=== PATIENT | male | born 1990 | race Caucasian/White ===

== ENCOUNTER 2017-05-17 19:20 | Inpatient (IN) | payer BC, OTHER ==
[~2017-05-17] VITALS: Ht 172.7 cm; Wt 70.3 kg
--- NOTE | 2017-05-17 20:00 | NUR ---
INTAKE ASSESSMENT Pt assessed in intake,Pt found to be A/A/O X 4,V/S STABLE:-B/P=131/82,T=97.5,P=97,R=16,O2 SAT= 97%.Pt is dirty,dishevelled and malodorous,dressed in dirty clothes,speech is clear,Pt is able to ambulate with a steady gait,no c/o pain or s/s of acute distress noted,in stable condition to proceed to detox unit.
[2017-05-17] MEDS ORDERED: THIAMINE HCL 200 MG/2 ML VIAL IM ONE (20:30)
[2017-05-17] MEDS ORDERED: ACETAMINOPHEN 325 MG TABLET PO PRN (20:30)
[2017-05-17] MEDS ORDERED: ONDANSETRON ODT 4 MG TAB.RAPDIS SL PRN (20:30)
[2017-05-17] MEDS ORDERED: DICYCLOMINE HCL 20 MG TABLET PO PRN (20:30)
[2017-05-17] MEDS ORDERED: MAG HYDROX/AL HYDROX/SIMETH 30 ML LIQUID UDC PO PRN (20:30)
[2017-05-17] MEDS ORDERED: MAGNESIUM HYDROXIDE 30 ML LIQUID UDC PO PRN (20:30)
[2017-05-17] MEDS ORDERED: ONDANSETRON 4 MG/2 ML VIAL IM PRN (20:30)
[2017-05-17] MEDS ORDERED: LOPERAMIDE HCL 2 MG CAPSULE PO PRN ×2 (20:30)
[2017-05-17] MEDS ORDERED: LORAZEPAM 1 MG TABLET PO PRN (20:30)
[2017-05-17] MEDS ORDERED: LORAZEPAM 2 MG/1 ML VIAL IM PRN (20:30)
[2017-05-17] MEDS ORDERED: MIRALAX 17 GM POWD.PACK PO PRN (20:30)
[2017-05-17] MEDS ORDERED: IBUPROFEN 400 MG TABLET PO PRN (20:30)
--- NOTE | 2017-05-17 21:00 | NUR ---
ADMISSION NOTE-- HT-5' 8" WT-155 LBS. B/P=131/82,T=07.5,P=97,R=16,O2 SAT=97% Admitting 27 year old male to [facility] for Alcohol Dependency.Pt started drinking Alcohol on and off since the age of 10 years,but became more regular at the age of 15 years.He has been drinking Malt Beverages on a daily basis for the past "few" weeks.He drinks 25 ounces cans "as many as I can afford to",approximately averaging up to 10 cans daily.His last drink was a few hours before admission.Pt is A/O X 4.Breathing is even and non labored,no c/o SOB noted.Abdomen is non tender with hypoactive bowel sounds x 4.No c/o N/V/D noted.Skin is warm,dry and intact.Pt noted to have red/flushed face and neck area due to being exposed to sun;also noted to have a small scab on his right wrist.No c/o pain or s/s of acute distress noted.CIWA score is 5.Pt denies any allergies to food or medications;denies any medical problems;no history of seizures noted.Pt does not take any medications.Pt admits feeling anxious and depressed,also has history of having suicidal thoughts but denies feeling suicidal at this time.Pt does not have a PCP.Pt oriented to room and unit,all safety measures in place per hospital policy;bed is locked in the lowest position,side rails up x 2,call light within reach;care plan and safety checks initiated, notified,will continue to monitor for safe detox. TREATMENT HX:- [facility] 1 YEAR AGO. [facility] 8 MONTHS AGO. Pt longest sober period was for 9 months,Pt is unable to provide exact time.
[2017-05-17 21:15] LABS: BASOPHILS % (AUTO) 0.3 % (0.0-2.0); EOSINOPHILS % (AUTO) 0.4 % (0.0-7.0); HEMATOCRIT 43.7 % (40-50); HEMOGLOBIN 14.9 G/DL (14.0-18.0); LYMPHOCYTES # (AUTO) 2.2 K/UL (0.8-4.8); LYMPHOCYTES % (AUTO) 21.3 % (20.5-51.5); MEAN CORPUSCULAR HGB CONC 34 g/dL (32.0-37.0); MEAN CORPUSCULAR VOLUME 85.5 FL (82.0-92.0); MONOCYTES # (AUTO) 1.2 K/UL (0.1-1.30); MONOCYTES % (AUTO) 11.2 % (0.0-11.0); NEUTROPHILS # (AUTO) 7.1 K/UL (1.8-8.9); NEUTROPHILS % (AUTO) 66.8 % (38.5-71.5); PLATELET COUNT (AUTO) 183 K/UL (150-450); RED BLOOD CELL COUNT(AUTO) 5.12 MIL/UL (4.7-6.1); WHITE BLOOD COUNT (AUTO) 10.5 K/UL (4.0-11.2)
[2017-05-17 21:33] LABS: BILIRUBIN,TOTAL 1.3 mg/dL (0.2-1.0); CREATININE 0.9 mg/dL (0.6-1.3); MAGNESIUM 1.6 mg/dL (1.8-2.4); POTASSIUM 3.3 mmol/L (3.5-5.1); TOTAL PROTEIN, SERUM 7.1 g/dL (6.4-8.2)
[2017-05-17 21:41] LABS: THYROID STIMULATING HORMONE 2.413 mIU/mL (0.358-3.740)
[2017-05-17] MEDS ORDERED: MAGNESIUM OXIDE 400 MG TABLET PO ONE (21:45)
[2017-05-17 21:57] LABS: *AMPHETAMINE, URINE NEGATIVE (NEGATIVE); *BARBITURATE, URINE NEGATIVE (NEGATIVE); *CANNABINOID, URINE NEGATIVE (NEGATIVE); *COCCAINE, URINE NEGATIVE (NEGATIVE); *OPIATE, URINE NEGATIVE (NEGATIVE); *PHENCYCLIDINE SCREEN,URINE NEGATIVE (NEGATIVE)
[2017-05-17] MEDS ORDERED: POTASSIUM CHLORIDE 20 MEQ TAB.PRT.SR PO ONE (22:00)
[2017-05-17] MEDS: LORAZEPAM 1 MG TABLET PO PRN (22:28)
[2017-05-17] MEDS: diphenhydrAMINE 50 MG CAPSULE PO PRN (22:28)
[2017-05-17] MEDS ORDERED: POTASSIUM CHLORIDE 20 MEQ TAB.PRT.SR ONE (22:30)
--- NOTE | 2017-05-17 22:30 | NUR ---
PRN MEDS PRN ATIVAN 1 MG PO GIVEN FOR CIWA SCORE OF 5 AND BENADRYL 50 MG PO GIVEN FOR C/O INSOMNIA.WILL MONITOR.
[2017-05-17] MEDS ORDERED: MAGNESIUM OXIDE 400 MG TABLET ONE (22:31)
--- NOTE | 2017-05-17 23:30 | NUR ---
PRN MEDS ARE MINIMALLY EFFECTIVE.PT STILL FEELING ANXIOUS AND UNABLE TO SLEEP.
[2017-05-17] MEDS: HYDROXYZINE PAMOATE 25 MG CAPSULE PO PRN (23:47)
--- NOTE | 2017-05-17 23:50 | NUR ---
PRN VISTARIL AND TYLENOL GIVEN ORDERED FOR C/O ANXIETY AND GENERAL BODY ACHE,RESPECTIVELY.
[2017-05-18] VITALS: BP 136/75
--- NOTE | 2017-05-18 00:50 | NUR ---
PRN F/U PT IS RESTING IN BED WITH EYES CLOSED.NO S/S OF DISTRESS NOTED.
[2017-05-18 04:00] VITALS: BP 131/91
--- NOTE | 2017-05-18 06:44 | NUR ---
END OF SHIFT Pt is a 27 year old male admitted to [facility] for Alcohol Dependency. Pt is A/O X 4.Breathing is even and non labored,no c/o SOB noted.Abdomen is non tender with hypoactive bowel sounds x 4.No c/o N/V/D noted.Skin is warm,dry and intact.Pt noted to have red/flushed face and neck area due to being exposed to sun;also noted to have a small scab on his right wrist.Pt has NKA,on regular diet,full code status;no history of seizures noted.PMH of anxiety and depression.PRN meds Ativan,Benadryl,Vistaril and Tylenol were given and effective.Pt slept 7 hrs,fluid intake was 1650 mls,voided x 1 . Bed is locked in the lowest position,side rails up x 2,call light within reach ,will continue to monitor.
--- NOTE | 2017-05-18 07:00 | NUR ---
Start Of Shift Patient Received from casino shift manager nurse. Pt is a 27 year old male admitted on 05/17/17 to [facility] for ETOH Dependency under the care of Dr. Flanagan. Pt is full code regular diet on fall and seizure precautions denies any food or drug allergies. Patient is not on a taper but has PRN medications in case of withdrawal symptoms. Pt is A/O X 4.Breathing is even and non labored. PMH of anxiety and depression.Treatment plan tolerated well by the patient as evidenced by pt's last CIWA score of 2 which was taken at 0400. Pt received PRN Ativan,Benadryl,Vistaril and Tylenol, medications were effective per casino shift manager nurse. Pt is currently in his room laying in bed watching TV. All safety measures in place per hospital policy. Bed in lowest position, side rails up x2, call-light within reach. Will continue to monitor and provide support.
[2017-05-18 08:00] VITALS: BP 145/99
[2017-05-18] MEDS ORDERED: TUBERCULIN,PURIF.PROT.DERIV. 5 TU/0.1 ML TEST ID ONE (09:00)
[2017-05-18] MEDS: MULTIVITAMINS,THERAPEUTIC TABLET PO SCH (09:06)
[2017-05-18] MEDS: THIAMINE HCL 100 MG TABLET PO SCH (09:06)
[2017-05-18] MEDS: FOLIC ACID 1 MG TABLET PO SCH (09:08)
[2017-05-18] MEDS: LORAZEPAM 1 MG TABLET PO PRN (09:08)
[2017-05-18] MEDS: CLONIDINE HCL 0.1 MG TABLET PO PRN ×2 (09:09→21:44)
--- NOTE | 2017-05-18 09:09 | NUR ---
PRN MEDICATION Pt c/o Anxiety presented with agitation and restlessness requested something for relief, non-pharmacological techniques interventions provided x3 and were not effective. PRN Clonidine 0.1mg Ativan 1mg administered PO as ordered for CIWA score of 7 , educated pt about s/e of medication and when to contact nurse. All needs met, all safety measures in place, will continue to monitor.
--- NOTE | 2017-05-18 10:09 | NUR ---
PRN Reassessment Medication effective pt reported a decrease in anxiety with a CIWA score of 5, all safety measures in place will continue to monitor.
[2017-05-18 12:00] VITALS: BP 129/90
[2017-05-18] MEDS: LORAZEPAM 1 MG TABLET PO SCH ×3 (13:34→21:39)
[2017-05-18] MEDS: GABAPENTIN 300 MG CAPSULE PO SCH ×2 (15:00→21:38)
[2017-05-18 16:00] VITALS: BP 148/75
--- NOTE | 2017-05-18 19:12 | NUR ---
End Of Shift 304 Report given. Pt is a 27 year old male admitted on 05/17/17 to [facility] for ETOH Dependency under the care of Dr. Flanagan. Pt is full code regular diet on fall and seizure precautions denies any food or drug allergies. Pt started on a 5 day Ativan taper tolerating well. VS monitored closely q 4 hours. Withdrawal symptoms were closely monitored. Initial CIWA 7. Patient encouraged adequate PO fluid intake as tolerated. Patient presented with tremors and anxiety during the day. Last CIWA 5. Per patient, Ativan has been helping him with his withdrawal symptoms. Pt ate all of his meals. Pt received PRN Ativan and clonidine during the day shift, medications were effective. Patient encouraged to attend group therapies/sessions to learn new coping skills to recent relapse, patient denies SI/HI. Participated in group and therapy sessions. All needs met and attended.
--- NOTE | 2017-05-18 19:40 | NUR ---
START OF SHIFT Received 27 year old male patient admitted on 05/17/17 for ETOH dependency. Pt is full code with NKA. Pt reports a PMHX of anxiety and depression. He reports using malt beverages 10 cans (25 oz) daily for a few weeks. Last dose was 2 cans on 05/17/17. He denies seizure history. Per endorsement, pt received PRN Clonidine, and Ativan. Pt is placed on 5 day Ativan taper and tolerating well. Pt is alert and oriented x4, breathing is even and unlabored. Safety measures in place. Will continue to monitor.
[2017-05-18 20:00] VITALS: BP 138/104
[2017-05-18] MEDS: diphenhydrAMINE 50 MG CAPSULE PO PRN (21:38)
--- NOTE | 2017-05-18 21:44 | NUR ---
PRN BENADRYL/CLONIDINE Pt with BP: 138/104, denies headache/dizziness. Pt complains of inability to sleep. PRN Benadryl and Clonidine administered as ordered. Breathing even and unlabored, safety measures in place. Will monitor.
--- NOTE | 2017-05-18 22:44 | NUR ---
PRN BENADRYL/CLONIDINE REASSESSMENT PRN clonidine effective. BP: 129/85. PRN Benadryl somewhat effective. Pt appears drowsy and reports he is ready to sleep. Will continue to monitor.
--- NOTE | 2017-05-19 | NUR ---
VITALS REFUSED/CIWA DEFERRED 0000 vitals refused. Pt stated " I didn't sleep well last night, I want to sleep." CIWA deferred d/t pt lying in bed with eyes closed noted to be asleep. Respirations 16, breathing is even and unlabored. Safety measures in place. Will continue to monitor.
[2017-05-19 04:00] VITALS: BP 102/65
--- NOTE | 2017-05-19 04:00 | NUR ---
CIWA DEFERRED CIWA deferred d/t pt lying in bed with eyes closed noted to be asleep. Respirations 16, breathing even and unlabored, safety measures in place. Will continue to monitor.
[2017-05-19 07:11] LABS: HEPATITIS B SURFACE AG Negative (Negative)
--- NOTE | 2017-05-19 07:11 | NUR ---
END OF SHIFT Pt is a 27 year old male patient admitted on 05/17/17 for ETOH dependency. Pt is full code with NKA. Pt reports a PMHX of anxiety and depression. Pt continues on 5 day Ativan taper and tolerating well. At 2144 he received PRN Benadryl and Clonidine. He slept a total of 7 hrs, Intake:855mL Void:x1 BM:x2 CIWA:6. Pt remains alert and oriented x4, breathing is even and unlabored. Safety measures in place. Endorsed to oncoming shift.
--- NOTE | 2017-05-19 07:15 | NUR ---
Start of shift note Pt was admitted for ETOH dependence. Pt has a PMHx of anxiety and depression. Pt is a full code, denies any allergies and is on a regular diet. Pt is on a fall and seizure precautions. Pt is on an ativan taper and tolerating well per report. Pt states that he is comfortable at this time, pt is pacing around his room. Will continue to monitor pt and administer medications as ordered by MD. All needs addressed at this time.
[2017-05-19 07:56] LABS: BILIRUBIN,DIRECT 0.2 mg/dL (0.0-0.2); CREATININE 1.1 mg/dL (0.6-1.3); MAGNESIUM 1.8 mg/dL (1.8-2.4); POTASSIUM 3.5 mmol/L (3.5-5.1); TOTAL PROTEIN, SERUM 7.3 g/dL (6.4-8.2)
[2017-05-19 08:00] VITALS: BP 122/89
[2017-05-19] MEDS: GABAPENTIN 300 MG CAPSULE PO SCH ×3 (08:31→21:06)
[2017-05-19] MEDS: MULTIVITAMINS,THERAPEUTIC TABLET PO SCH (08:31)
[2017-05-19] MEDS: THIAMINE HCL 100 MG TABLET PO SCH (08:31)
[2017-05-19] MEDS: FOLIC ACID 1 MG TABLET PO SCH (08:31)
[2017-05-19] MEDS: LORAZEPAM 1 MG TABLET PO SCH ×3 (08:32→21:06)
--- NOTE | 2017-05-19 09:31 | NUR ---
PRN administration Pt noted to be severely anxious. Pt is pacing the hallways. Pt states that he is worried about "being bombed by [place]". Pt advised to stop watching the news, therapist is aware. Pt encouraged to go to groups. Administered PRN clonidine and vistaril per MD order. Will continue to monitor pt.
[2017-05-19] MEDS: HYDROXYZINE PAMOATE 25 MG CAPSULE PO PRN ×3 (09:32→23:30)
[2017-05-19] MEDS: CLONIDINE HCL 0.1 MG TABLET PO PRN ×3 (09:32→23:30)
--- NOTE | 2017-05-19 10:31 | NUR ---
Reassessment Pt states that he still has anxiety, but states "I feel OK right now, I don't think I need anything, I will let you know if that changes". Pt is still pacing and appears anxious and flushed. Will continue to monitor closely.
[2017-05-19 12:00] VITALS: BP 126/85
--- NOTE | 2017-05-19 12:29 | NUR ---
CIWA assessment Pt noted to have a CIWA of 13, next scheduled medications at 1500, notified Dr Flanagan.
[2017-05-19] MEDS ORDERED: LORAZEPAM 1 MG TABLET PO ONE (12:45)
[2017-05-19 16:45] VITALS: BP 130/93
--- NOTE | 2017-05-19 16:46 | NUR ---
PRN administration Pt has a CIWA of 12, pt main complaint is anxiety and agitation. Administered PRN clonidine and vistaril per MD order. Will continue to monitor pt.
--- NOTE | 2017-05-19 17:46 | NUR ---
Reassessment Pt continues to have high levels of anxiety with increased heart rate, 110. Notified Dr Flanagan. Will continue to monitor pt.
--- NOTE | 2017-05-19 19:06 | NUR ---
End of shift note Pt was admitted for ETOH dependence. Pt has a PMHx of anxiety and depression. Pt is a full code, denies any allergies and is on a regular diet. Pt is on a fall and seizure precautions. Pt is on an ativan taper and required a onetime dose of ativan during the shift to manage his s/s of withdrawal. Pt is experiencing severe levels of anxiety, Dr Connell and Dr Flanagan are aware. NNO. Pt had clonidine and vistaril PRN x 2 during the shift for his anxiety s/s, with some effectiveness. Pt continues to pace throughout the unit, pt denies any further discomfort at this time. Pt refused breakfast, but ate 100% of lunch and dinner, drank 1802ml of fluids, had 5 voids and 2 BM's during the shift. Will endorse SBAR to oncoming shift.
--- NOTE | 2017-05-19 19:15 | NUR ---
START OF SHIFT Received 27 year old male patient admitted on 05/17/17 for ETOH dependency. Pt is full code with NKA. Pt reports a PMHX of anxiety and depression. He reports using malt beverages 10 cans (25 oz) daily for a few weeks. Last dose was 2 cans on 05/17/17. He denies seizure history. Per endorsement, pt received PRN Clonidine, and Ativan x1 at 1300. Pt is tolerating his 5 day Ativan taper well. Pt is alert and oriented x4, breathing is even and unlabored. Safety measures in place. Will continue to monitor.
[2017-05-19 20:00] VITALS: BP 141/95
[2017-05-19] MEDS: diphenhydrAMINE 50 MG CAPSULE PO PRN (21:06)
--- NOTE | 2017-05-19 21:06 | NUR ---
PRN BENADRYL Pt complains of inability to sleep. PRN Benadryl administered as ordered. Breathing is even and unlabored, safety measures in place. Will continue to monitor effectiveness.
--- NOTE | 2017-05-19 22:06 | NUR ---
PRN BENADRYL REASSESSMENT PRN medication not effective. Pt still awake, unable to sleep at this time. Breathing even and unlabored, safety measures in place. Will monitor.
--- NOTE | 2017-05-19 23:30 | NUR ---
PRN VISTARIL/CLONIDINE Pt complains of anxiety, agitation, and diaphoresis. PRN Vistaril and Clonidine administered as ordered. Breathing even and unlabored. Safety measures in place. Will continue to monitor effectiveness.
[2017-05-20] VITALS (7 sets, daily range): BP systolic 118–145; BP diastolic 85–96
--- NOTE | 2017-05-20 00:30 | NUR ---
PRN VISTARIL/CLONIDINE REASSESSMENT PRN medications effective. Pt is lying in bed with eyes closed noted to be asleep. No facial grimacing. Breathing is even and unlabored, safety measures in place. Will monitor.
--- NOTE | 2017-05-20 04:00 | NUR ---
CIWA DEFERRED 0400 CIWA deferred d/t pt lying in bed with eyes closed noted to be asleep. Respirations 16, breathing is even and unlabored, safety measures in place. Will monitor.
--- NOTE | 2017-05-20 06:57 | NUR ---
END OF SHIFT Pt is a 27 year old male patient admitted on 05/17/17 for ETOH dependency. Pt is full code with NKA. Pt reports a PMHX of anxiety and depression. He continues on his 5 day Ativan taper and tolerating well. At 2106 he received PRN Benadryl, at 2330 he received PRN Vistaril and Clonidine. He slept a total of 5 hrs, Intake: 955mL, Void: x4, BM: x2, CIWA:7. Pt remains alert and oriented x4, breathing is even and unlabored. Safety measures in place. Will endorse.
--- NOTE | 2017-05-20 07:36 | NUR ---
START OF SHIFT NOTE Received patient this Am Aox4. Patient wandering halls and appears restless. He states he has muscle spasms and sweats. He is on 5 day Ativan taper. PRN Benadryl, Vistaril, Clonidine given per night nurse. He slept 5 hours. Last CIWA 7 per night nurse. Encouraged patient to attend groups and activities. Encouraged patient to increase fluid intake to facilitate detox. Encouraged pt to notify RN if S/S of W/D worsen. Will monitor closely and offer help.
[2017-05-20] MEDS: GABAPENTIN 300 MG CAPSULE PO SCH ×2 (08:06→14:56)
[2017-05-20] MEDS: MULTIVITAMINS,THERAPEUTIC TABLET PO SCH (08:06)
[2017-05-20] MEDS: THIAMINE HCL 100 MG TABLET PO SCH (08:06)
[2017-05-20] MEDS: LORAZEPAM 1 MG TABLET PO SCH ×3 (08:06→16:15)
[2017-05-20] MEDS: FOLIC ACID 1 MG TABLET PO SCH (08:06)
--- NOTE | 2017-05-20 10:55 | NUR ---
Therapist prompted client about group times. Client stated, "I think I'll go."
--- NOTE | 2017-05-20 11:42 | NUR ---
Therapist notified charge nurse (Damaris) that client appeared disoriented as he was walking in the [place].
--- NOTE | 2017-05-20 11:57 | NUR ---
1:1 sitter with patient for disorientation and reporting to therapist suicidal ideations. Dr. Connell notified by therapist. Sitter at bedside. Dr. Luna arrived to evaluate pt.
[2017-05-20] MEDS: CLONIDINE HCL 0.1 MG TABLET PO PRN ×2 (12:56→19:20)
--- NOTE | 2017-05-20 12:56 | NUR ---
PRN MEDS Clonidine given for c/o anxiety. patient appears anxious and restless. blood pressure stable at 122/89. will reassess
--- NOTE | 2017-05-20 13:00 | NUR ---
CRISIS TEAM CALLED. PT WAS EVALUATED BY ODESSA FROM CRISIS TEAM. PT WAS PUT ON 5150. PT VERBALIZED SUICIDAL IDEATIONS. 1:1 SITTER CONTINUES AT BEDSIDE.
--- NOTE | 2017-05-20 13:30 | NUR ---
PRN REASSESSMENT patient appears less anxious. vital signs stable. will monitor.
[2017-05-20] MEDS: HYDROXYZINE PAMOATE 25 MG CAPSULE PO PRN (15:48)
--- NOTE | 2017-05-20 15:48 | NUR ---
PRN MEDICATION 50 MG VISTARIL GIVEN FOR ANXIETY AND RESTLESSNESS. PATIENT APPEARS VERY NERVOUS AND IRRITATED. WILL REASSESS.
--- NOTE | 2017-05-20 16:30 | NUR ---
PRN REASSESSMENT patient reports no relief of symptoms. one time dose of Seroquel ordered per psychiatrist.
[2017-05-20] MEDS ORDERED: QUETIAPINE FUMARATE 25 MG TABLET PO ONE (16:45)
--- NOTE | 2017-05-20 17:39 | NUR ---
spoke with oscar charge nurse to give report for transferring pt to [facility] for 5150. pt verbalized danger to self. pt will be under the care of Dr. Naty Cabrera. pt will be admitted to [facility], pt will go to ER prior to being direct Admit to Room 2323K.
--- NOTE | 2017-05-20 17:50 | NUR ---
placed a call to med response for transportation and transfer to [facility] spoke with Kelly CORBIN 191.
--- NOTE | 2017-05-20 18:40 | NUR ---
END OF SHIFT NOTE Patient pending transfer to [facility] d/t 5150 placed on pt. PRN clonidine and Vistaril given. One time order of Seroquel given per psych doctor. Vital signs stable. 1:1 sitter at bedside d/t suicidal ideations. All safety measures in place. Endorsed to night RN.
--- NOTE | 2017-05-20 19:05 | NUR ---
START OF SHIFT Received 27 year old male patient admitted on 05/17/17 for ETOH dependency. Pt is full code with NKA. Pt reports a PMHX of anxiety and depression. He reports using malt beverages 10 cans (25 oz) daily for a few weeks. Last dose was 2 cans on 05/17/17. He denies seizure history. Per endorsement, pt verbalized thoughts of suicide with active plan. Pt was placed on 5150 and will be transferred to [facility] via med response. Pt is alert and oriented x4, breathing is even and unlabored. Safety measures in place. Will continue to monitor.
--- NOTE | 2017-05-20 19:20 | NUR ---
PRN CLONIDINE Pt complains of anxiety, and is noted with increased HR: 130. BP: 139/94. PRN Clonidine administered as ordered. Breathing even and unlabored. Will monitor.
--- NOTE | 2017-05-20 19:42 | NUR ---
TRANSFER NOTE Pt transferred to [facility] by [facility]. Pt is stable, alert and oriented x4. Pt verbalized that he did not have any home medications. Report was given to pressure controller, Vital signs stable. Clonidine was administered prior to DC d/t HR of 130. Pt left with all personal belongings.
[2017-05-20] MEDS ORDERED: GABAPENTIN 300 MG CAPSULE PO SCH (21:00)
[2017-05-21] MEDS ORDERED: LORAZEPAM 1 MG TABLET PO SCH (09:00)
[2017-05-22] MEDS ORDERED: LORAZEPAM 1 MG TABLET PO SCH (09:00)
== END 2017-05-20 19:41 | disposition psychiatric hospital, planned readmission (93) | DRG 895 ==
LOC: SRC 19:39
PROVIDERS: ADMIT Internal Medicine; ATTEND Internal Medicine
PROC: HZ2ZZZZ Detoxification Services for Substance Abuse Treatment (ICD-10-PCS; principal; 2017-05-17)
PROC: HZ41ZZZ Group Counseling for Substance Abuse Treatment, Behavioral (ICD-10-PCS; 2017-05-18)
PROC: HZ31ZZZ Individual Counseling for Substance Abuse Treatment, Behavioral (ICD-10-PCS; 2017-05-19)
DX: F10.230 Alcohol dependence with withdrawal, uncomplicated (principal); R45.851 Suicidal ideations; K70.10 Alcoholic hepatitis without ascites; Y90.2 Blood alcohol level of 40-59 mg/100 ml; E83.42 Hypomagnesemia; E87.6 Hypokalemia; Z59.0 Homelessness; Z91.5 Personal history of self-harm; F32.9 Major depressive disorder, single episode, unspecified; Z72.0 Tobacco use
CPT/HCPCS: 36415; 70030-TC; 80307; 83690; 83735; 84100; 84443; 85025; 86580; 86592; 86705; 86803; 87340; 87806; G0480; J3411; Q0163